=== PATIENT | female | born 1960 | race Native Hawaiian/Other Pacific Islander ===

== ENCOUNTER 2018-04-22 08:29 | Emergency (ER) | payer BC ==
[~2018-04-22] VITALS: Ht 167.6 cm; Wt 68.0 kg
[2018-04-22 08:35] VITALS: TEMP 97.5
[2018-04-22 09:45] VITALS: BP 150/75
== END 2018-04-22 09:45 | disposition home or self-care (01) ==
LOC: ED 08:29
DX: H10.13 Acute atopic conjunctivitis, bilateral (principal)
CPT/HCPCS: 99281